=== PATIENT | female | born 1995 | race Caucasian/White ===

== ENCOUNTER 2019-09-10 20:02 | Emergency (ER) | payer MEDICAID ==
[~2019-09-10] VITALS: Ht 162.6 cm; Wt 67.4 kg
[2019-09-10 21:18] LABS: BASOPHILS # (AUTO) 0.05 x10^3/uL (0-0.1); BASOPHILS % (AUTO) 0 % (0-1); EOSINOPHILS # (AUTO) 0.11 x10^3/uL (0-0.4); EOSINOPHILS % (AUTO) 1 % (1-7); LYMPHOCYTES # (AUTO) 2.55 x10^3/uL (1-3.4); LYMPHOCYTES % (AUTO) 16 % (22-44); MD NO; MEAN CORPUSCULAR HEMOGLOBIN 31.9 pg (27.0-34.8); MEAN CORPUSCULAR HGB CONC 33.3 g/dL (32.4-35.8); MEAN CORPUSCULAR VOLUME 95.8 fL (80-100); MEAN PLATELET VOLUME 7.2 fL (7.4-10.4); MONOCYTES # (AUTO) 0.74 x10^3/uL (0.2-0.8); MONOCYTES % (AUTO) 5 % (2-9); NEUTROPHILS # (AUTO) 12.11 x10^3/uL (1.8-6.8); NEUTROPHILS % (AUTO) 78 % (42-75); PLATELET COUNT 253 x10^3/uL (130-400); RED BLOOD COUNT 4.36 x10^6/uL (3.82-5.3); RED CELL DISTRIBUTION WIDTH 13.6 % (9.6-15.2)
[2019-09-10 21:30] LABS: MICROSCOPIC NOT IND
[2019-09-10 21:30] LABS: ALANINE AMINOTRANSFERASE 35 U/L (12-78); ALBUMIN 4.1 g/dL (3.4-5.0); ANION GAP 7 mmol/L (5-15); CALCIUM 8.9 mg/dL (8.5-10.1); CHLORIDE 110 mmol/L (98-107); CREATININE 0.67 mg/dL (0.55-1.02)
[2019-09-10 21:34] LABS: CULTURE INDICATED? NO
[2019-09-10 21:35] LABS: ALKALINE PHOSPHATASE 59 U/L (45-117); BILIRUBIN,TOTAL 0.3 mg/dL (0.2-1.0); TOTAL PROTEIN 7.6 g/dL (6.4-8.2)
--- NOTE | 2019-09-10 21:53 | NUR ---
PAIN 8/10 IN LOWER ABD QUADRANTS. STARTED AROUND 1900 THIS EVENING. VS STABLE. PT WITH SIGNIFICANT OTHER AT BEDSIDE. HAS N/V EARLIER BUT DENIES N/V CURRENTLY.
--- NOTE | 2019-09-10 21:54 | NUR ---
PT STATES SHE WAS DIAGNOSED WITH ORAVIAN CYSTS IN THE PAST.
[2019-09-10] MEDS ORDERED: ONDANSETRON 2MG/ML, 2ML ONE (22:23)
[2019-09-10] MEDS ORDERED: MORPHINE SULFATE 4 MG/ML, 1ML ONE ×2 (22:23→23:41)
[2019-09-10] MEDS ORDERED: ONDANSETRON ODT 4 MG PO ONE (22:30)
[2019-09-10] MEDS: MORPHINE SULFATE 4 MG/ML, 1ML IVPush PRN ×2 (22:31→23:42)
--- NOTE | 2019-09-10 22:33 | NUR ---
PT REPORTS PAIN RELIEF. FROM 8/10 TO 0/10 AFTER MORPHINE
--- NOTE | 2019-09-10 23:24 | NUR ---
PT AMBULATORY TO THE BATHROOM WITH STEADY GAIT
[2019-09-10] MEDS ORDERED: OMNIPAQUE 350 MG/ML, 100ML BOTTLE ONE (23:27)
[2019-09-10] MEDS ORDERED: ONDANSETRON 2MG/ML, 2ML IVPush ONE (23:30)
--- NOTE | 2019-09-10 23:38 | NUR ---
DR KELLER IN TO DO PELVIC WITH THIS RN TO MANAGER PORTABLE. SWABS SENT TO LAB
[2019-09-10 23:44] VITALS: BP 114/68
[2019-09-11 00:01] LABS: CLUE CELLS NONE SEEN (NONE SEEN); WET PREP WBCS NONE SEEN (FEW)
[2019-09-11] MEDS ORDERED: KETOROLAC 30 MG/1 ML ONE (00:28)
[2019-09-11] MEDS ORDERED: KETOROLAC 30 MG/1 ML IVPush ONE (00:30)
== END 2019-09-11 00:44 | disposition home or self-care (01) ==
LOC: ED 23:59
DX: N83.291 Other ovarian cyst, right side (principal)
CPT/HCPCS: 36415; 74177; 76830; 80053; 81003; 84703; 85025; 87210; 87491; 87591; 87808; 96374; 96375; 96376; 99284; J1885; J2270; J2405; Q9967